=== PATIENT | female | born 1985 | race Caucasian/White ===

== ENCOUNTER 2025-02-09 10:40 | Day surgery (SDC) | payer OTHER, SELFPAY ==
[2025-02-07 12:07] LABS: Anion Gap 5.5 mEq/L (5.0-15.0); Potassium 4.5 mEq/L (3.5-5.1)
[2025-02-09] MEDS: Ringers Lactate 1,000 ML IV ONE (11:15)
[2025-02-09] MEDS ORDERED: propofoL 200 MG/20 ML VIAL IV ONE ×2 (13:19)
[2025-02-09 14:54] VITALS: O2SAT 100
[2025-02-09 14:56] VITALS: BP 123/84; TEMP 97.8
--- NOTE | 2025-02-12 12:18 | EKG ---
Test Date: 2025-02-07 Test Time: 11:30:01 Nocturnist Physician: KIRILL MEASUREMENT RESULTS: Intervals: Rate: 52 NE: 134 QRSD: 80 QT: 424 QTc: 394 [place]: P: 56 NE: 134 QRS: 67 T: 73 INTERPRETIVE STATEMENTS: Sinus bradycardia Low voltage QRS Borderline ECG No previous ECG available for comparison Electronically Signed On 02-12-25 12:07:36 CDT by Priyank Mcduffie
== END 2025-02-09 14:27 | disposition home or self-care (01) ==
LOC: OR 10:40
PROVIDERS: ATTEND Surgery
PROC: 0DBP8ZX Excision of Rectum, Via Natural or Artificial Opening Endoscopic, Diagnostic (ICD-10-PCS; principal; 2025-02-09 12:45)
DX: Z12.11 Encounter for screening for malignant neoplasm of colon (principal); Z80.0 Family history of malignant neoplasm of digestive organs; K64.8 Other hemorrhoids
CPT/HCPCS: 93005; 80048; 36415 ×2; 84703; 88305; 45380; J2704; J7120